=== PATIENT | male | born 1960 | race Caucasian/White ===

== ENCOUNTER 2020-08-17 11:51 | Emergency (ER) | payer SELFPAY ==
[2020-08-17 11:54] VITALS: BP 164/99; PULSE 112; RESP 20; TEMP 36.8; O2SAT 100
--- NOTE | 2020-08-17 12:40 | ED_ITS ---
HPI - Extremity Problem General Chief complaint: Extremity Injury, Upper Stated complaint: right pointer finger almost cut off Time Seen by Provider: 08/17/20 12:09 Source: patient Mode of arrival: ambulatory Limitations: no limitations History of Present Illness HPI Narrative: Patient is a 59-year-old male complaining of cutting his right hand palmar aspect, accidentally by a box blank machine feeder. Patient states that he just opened up a new box blank machine feeder and actually cut himself. He denies any other injuries or pain. Patient states last time he had tetanus shot was less than 5 years ago. Related Data Home Medications Medication Instructions Recorded Confirmed No Home Medications 08/17/20 08/17/20 Allergies Allergy/AdvReac Type Severity Reaction Status Date / Time No Known Allergies Allergy Verified 08/17/20 11:59 Review of Systems Review of Systems: All systems reviewed & are unremarkable except as noted in HPI and below Exam Const: General: no acute distress HENMT: Head: normal to inspection Neck: Neck: normal visual inspection Resp: Effort & Inspection: normal respiratory effort Course Vital Signs Vital signs: Vital Signs Temperature 36.8 C 08/17/20 11:54 Pulse Rate 112 H 08/17/20 11:54 Respiratory Rate 20 08/17/20 11:54 Blood Pressure 164/99 H 08/17/20 11:54 Pulse Oximetry 100 08/17/20 11:54 Temperature 36.8 C 08/17/20 11:54 Pulse Rate 112 H 08/17/20 11:54 Respiratory Rate 20 08/17/20 11:54 Blood Pressure 164/99 H 08/17/20 11:54 Pulse Oximetry 100 08/17/20 11:54 Procedures Laceration Laceration 1: Date: 08/17/20 Site: hand Side (If applicable): right Size (cm): 3 Description: linear Pre-repair: irrigated ====== Skin Level ====== Skin layer closed with: dermabond ====== Subcutaneous Layer ====== ====== Muscle Layer ====== ====== Tendon Layer ====== Discharge Plan Discharge Clinical Impression: Hand laceration Qualifiers: Encounter type: initial encounter Foreign body presence: without foreign body Laterality: right Qualified Code(s): S61.411A - Laceration without foreign body of right hand, initial encounter Patient Disposition: Home, Self-Care Condition: Improved Instructions: Antibiotic Form, Skin Adhesive Care (ED) Prescriptions: No Action No Home Medications RF: 0 Follow-up/Referrals: PHYSICIAN,CLUB MANAGER [Primary Care Provider] - Time of Disposition: 12:51
[2020-08-17 13:19] VITALS: BP 142/88; PULSE 98; RESP 20; O2SAT 99
== END 2020-08-17 13:20 | disposition home or self-care (01) ==
PROVIDERS: Emergency Provider Emergency Medicine
DX: S61.411A Laceration without foreign body of right hand, initial encounter (principal); W27.8XXA Contact with other nonpowered hand tool, initial encounter
CPT/HCPCS: 12002; 99282